=== PATIENT | male | born 1955 | race Caucasian/White ===

== ENCOUNTER → 2019-10-19 | Day surgery (SDC) | payer BC ==
[~2019-10-19] MED LIST: Propofol 200 MG/20 ML SDV IV ONE
[2019-10-19] MEDS: Lactated Ringers 1,000 ML IV SCH (08:26)
--- NOTE | 2019-10-19 18:52 | OR ---
DATE OF OPERATION: 10/19/2019 PREOPERATIVE DIAGNOSIS: 1. HEMATOCHEZIA. 2. HISTORY OF POLYPS. POSTOPERATIVE DIAGNOSIS: HEMATOCHEZIA. SURGEON: Abel Keating MD PROCEDURE: DIAGNOSTIC COLONOSCOPY WITH BIOPSIES X3. ANESTHESIA: MAC. COMPLICATIONS: None. SPECIMEN: 1. Rectosigmoid biopsy x2. 2. Distal rectal biopsy x1. FINDINGS: 1. Full-length colonoscopy. 2. Moderate distal sigmoid and rectosigmoid diverticulosis. 3. Rectosigmoid colitis, likely diverticular in nature. 4. Distal proctitis. RECOMMENDATIONS: Followup pending path reports. Routine colonoscopy in 10 years. INDICATIONS: The patient has a prior history of polyps being removed. He had a 4-year followup. This was approximately 7 years later. He has been having some hematochezia. He was sent for a diagnostic scope. DESCRIPTION OF PROCEDURE: The patient was prepped and draped, placed in the left lateral decubitus position. A lubricated Olympus colonoscope was inserted and easily advanced to the cecum. Direct visualization of the ileocecal valve and appendiceal orifice was accomplished. The bowel prep was excellent. Upon withdrawal of the scope, the cecum, right transverse and descending colons were completely benign. The patient had diverticular disease throughout most of the sigmoid and into the rectosigmoid junction, moderate in severity down at the junction region. In that area, the patient had some peridiverticular inflammation and colitis. We did do 2 biopsies of it. The rectal vault was essentially benign, other than on retroflexion, he had a lot of perianal proctitis present. We did do a biopsy of that as well. No other hemorrhoidal lesions. Air was then suctioned, scope removed without complication. ALEXANDR/LISBET /[id number]
== END ==
LOC: CC.SDS 08:03
PROVIDERS: ATTEND Family Medicine
DX: K57.31 Diverticulosis of large intestine without perforation or abscess with bleeding (principal); K52.9 Noninfective gastroenteritis and colitis, unspecified; K62.89 Other specified diseases of anus and rectum; N40.0 Benign prostatic hyperplasia without lower urinary tract symptoms; F41.8 Other specified anxiety disorders; M10.9 Gout, unspecified; Z88.5 Allergy status to narcotic agent; Z79.2 Long term (current) use of antibiotics; Z79.899 Other long term (current) drug therapy; Z86.010 Personal history of colon polyps
CPT/HCPCS: 45380; J2704; J7120